=== PATIENT | female | born 1935 | race Caucasian/White ===

== ENCOUNTER → 2017-06-20 | Outpatient (CLI) | payer MEDICARE, BC ==
[~2017-06-20] MED LIST: CALCIUM & MAGNE1 CAP PO; CEFTIN250 MG PO; IMODIUM2 MG PO; MULTIPLE VITAMI1 CAP PO; NORCO 325 MG-51 TAB PO; VICOPROFEN 7.51 TAB PO; VITAMIN B COMPL1 TA1 PO; VITAMIN C500 MG PO
== END ==
LOC: COL.VAS 07:56
DX: C18.9 Malignant neoplasm of colon, unspecified (principal); Z86.711 Personal history of pulmonary embolism

== ENCOUNTER 2017-12-06 10:53 | Emergency (ER) | payer MEDICARE, BC ==
[~2017-12-06] VITALS: Ht 170.2 cm; Wt 54.5 kg
[2017-12-06 10:57] VITALS: TEMP 98
[2017-12-06 11:33] LABS: BASO % 0.5 % (0.0-2.0); EOS % 0.5 % (0-4.0); GRAN % 78.8 % (42.2-75.2); HEMATOCRIT 41.4 % (37.0-47.0); LYMPH # 0.7 (1.2-3.4); LYMPH % 10.6 % (20.0-51.0); MEAN CELL VOLUME 96 fl (80.0-100.0); MEAN CORPUSCULAR HEMOGLOBIN 33 pg (27.0-31.0); MEAN CORPUSCULAR HGB CONC 34 g/dl (33.0-37.0); MEAN PLATELET VOLUME 12.3 fl (7.4-10.4); MONO # 0.6 (0.1-0.6); MONO % 9.4 % (1.7-9.3); PLATELET COUNT 142 K/mm3 (130-400); RED BLOOD COUNT 4.31 M/mm3 (4.10-5.30); REDCELL DISTRIBUTION WIDTH-CV 12.9 % (11.5-14.5)
[2017-12-06 11:43] LABS: ALBUMIN 4.6 gm/dL (3.5-5.0); BILIRUBIN,TOTAL 1.3 mg/dL (0.0-1.0); C-REACTIVE PROTEIN 6.6 mg/dL (0.0-0.9); CALCIUM 9.4 mg/dL (8.4-10.2); CREATININE, serum 0.7 mg/dL (0.52-1.25); POTASSIUM 3.9 mmol/L (3.4-5.0); TOTAL PROTEIN 7.4 gm/dL (6.4-8.2)
[2017-12-06] MEDS ORDERED: LEVAQUIN 5500 MG/TA1 PO (13:22)
[2017-12-06] MEDS ORDERED: FLAGYL500 MG PO (13:22)
[2017-12-06 13:40] VITALS: BP 114/69; PULSE 76
== END 2017-12-06 13:33 | disposition home or self-care (01) ==
LOC: COL.ER 10:53
PROVIDERS: Emergency Medicine
DX: K52.9 Noninfective gastroenteritis and colitis, unspecified (principal); K62.89 Other specified diseases of anus and rectum; Z90.710 Acquired absence of both cervix and uterus; Z90.89 Acquired absence of other organs; Z98.890 Other specified postprocedural states
CPT/HCPCS: J7030; Q9967

== ENCOUNTER 2018-04-12 10:48 | Inpatient (IN) | payer MEDICARE, BC ==
[~2018-04-12] VITALS: Ht 170.2 cm; Wt 56.0 kg
[2018-04-12] VITALS (8 sets, daily range): BP systolic 102–121; BP diastolic 43–82; PULSE 76–85; TEMP 98.1–98.4
[~2018-04-12 10:48] MED LIST changes: +FLAGYL500 MG PO; +LEVAQUIN 5500 MG/TA1 PO
[2018-04-12 12:12] LABS: HEMATOCRIT 41.3 % (37.0-47.0); MEAN CELL VOLUME 97 fl (80.0-100.0); MEAN CORPUSCULAR HEMOGLOBIN 33 pg (27.0-31.0); MEAN CORPUSCULAR HGB CONC 34 g/dl (33.0-37.0); MEAN PLATELET VOLUME 11.8 fl (7.4-10.4); PLATELET COUNT 151 K/mm3 (130-400); RED BLOOD COUNT 4.27 M/mm3 (4.10-5.30)
[2018-04-12 12:16] LABS: PROTHROMBIN TIME 11.5 SECONDS (9.7-12.8)
[2018-04-12 12:24] LABS: ALBUMIN 4.2 gm/dL (3.5-5.0); BILIRUBIN,TOTAL 0.6 mg/dL (0.0-1.0); CALCIUM 9.3 mg/dL (8.4-10.2); CREATININE, serum 0.63 mg/dL (0.52-1.25); POTASSIUM 4.6 mmol/L (3.4-5.0); TOTAL PROTEIN 7.5 gm/dL (6.4-8.2)
[2018-04-12 12:59] LABS: BAND 11 % (0-10); LYMPHOCYTE 10 % (20.0-51.0); NEUTROPHILS 75 % (42.0-75.2)
[2018-04-12 13:00] LABS: PLATELET ESTIMATE NORMAL (NORMAL)
[2018-04-12 15:05] LABS: COLLECTION METHOD CLEAN CATCH
[2018-04-12 15:29] LABS: MUCOUS Present /lpf; PH 6 (5-8); SQUAMOUS EPITHELIAL 0-2 /hpf; URINE APPEARANCE Clear; URINE BACTERIA None Seen /hpf; URINE BILIRUBIN Negative (NEGATIVE); URINE BLOOD Negative (NEGATIVE); URINE COLOR Yellow; URINE GLUCOSE Negative (NEGATIVE); URINE KETONE Trace (NEGATIVE); URINE LEUKOCYTE ESTERASE Negative (NEGATIVE); URINE NITRATE Negative (NEGATIVE); URINE PROTEIN(semi-quant) Negative (NEGATIVE); URINE RBC 0-2 /hpf; URINE UROBILINOGEN Negative (NEGATIVE)
[2018-04-13] VITALS (7 sets, daily range): BP systolic 94–149; BP diastolic 43–80; PULSE 70–84; TEMP 98.2–99.1
[2018-04-13 06:47] LABS: BASO % 0.1 % (0.0-2.0); GRAN # 5.9 (1.4-6.5); GRAN % 85.7 % (42.2-75.2); LYMPH # 0.5 (1.2-3.4); LYMPH % 7.3 % (20.0-51.0); MEAN CELL VOLUME 97 fl (80.0-100.0); MEAN CORPUSCULAR HGB CONC 33 g/dl (33.0-37.0); MEAN PLATELET VOLUME 12.8 fl (7.4-10.4); MONO # 0.5 (0.1-0.6); MONO % 6.6 % (1.7-9.3); PLATELET COUNT 112 K/mm3 (130-400); RED BLOOD COUNT 3.41 M/mm3 (4.10-5.30)
[2018-04-13 06:53] LABS: CALCIUM 8.3 mg/dL (8.4-10.2); CREATININE, serum 0.61 mg/dL (0.52-1.25); POTASSIUM 3.9 mmol/L (3.4-5.0)
[2018-04-13 06:57] LABS: HEMATOCRIT 33.1 % (37.0-47.0); MEAN CORPUSCULAR HEMOGLOBIN 32 pg (27.0-31.0)
[2018-04-14 03:34] VITALS: BP 127/56; PULSE 89; TEMP 98.5
[2018-04-14 07:37] VITALS: BP 116/54; PULSE 81; TEMP 98.2
[2018-04-14 08:52] LABS: BASO % 0.3 % (0.0-2.0); EOS # 0.1 (0.0-0.7); EOS % 1.7 % (0-4.0); GRAN # 4.7 (1.4-6.5); GRAN % 81.5 % (42.2-75.2); HEMOGLOBIN 11.1 g/dl (12.5-16.0); LYMPH # 0.6 (1.2-3.4); LYMPH % 10.7 % (20.0-51.0); MEAN CELL VOLUME 97 fl (80.0-100.0); MEAN CORPUSCULAR HEMOGLOBIN 32 pg (27.0-31.0); MEAN CORPUSCULAR HGB CONC 33 g/dl (33.0-37.0); MEAN PLATELET VOLUME 12.2 fl (7.4-10.4); MONO # 0.3 (0.1-0.6); MONO % 5.5 % (1.7-9.3); PLATELET COUNT 103 K/mm3 (130-400); RED BLOOD COUNT 3.44 M/mm3 (4.10-5.30)
[2018-04-14 08:53] LABS: HEMATOCRIT 33.4 % (37.0-47.0)
[2018-04-14] MEDS ORDERED: ASPI325T6 PO (11:02)
[2018-04-14] MEDS ORDERED: ULTRAM 50MG TAB50 MG PO (11:06)
[2018-04-14 11:59] VITALS: BP 103/46; PULSE 70; TEMP 98.5
[2018-04-14 16:02] VITALS: BP 115/54; PULSE 78; TEMP 98.5
[2018-04-14 20:07] VITALS: BP 106/53; PULSE 87; TEMP 99
== END 2018-04-14 20:43 | disposition home health service (06) | DRG 481 ==
LOC: COL.ER 10:48 → JCC 12:45
PROVIDERS: Hospitalist; Nurse Practitioner; Orthopaedic Surgery; Physician Assistant
PROC: 0QH706Z Insertion of Intramedullary Internal Fixation Device into Left Upper Femur, Open Approach (ICD-10-PCS; principal; 2018-04-12 16:00)
DX: S72.142A Displaced intertrochanteric fracture of left femur, initial encounter for closed fracture (principal); C18.7 Malignant neoplasm of sigmoid colon; C77.2 Secondary and unspecified malignant neoplasm of intra-abdominal lymph nodes; D62 Acute posthemorrhagic anemia; Z66 Do not resuscitate; W18.30XA Fall on same level, unspecified, initial encounter; F17.210 Nicotine dependence, cigarettes, uncomplicated
CPT/HCPCS: 99222-AI; 99233-AI; 99239; A4314; A9284; C1713; J0690; J1885; J2250; J2270; J2370; J2405; J2704; J2795; J3010; J7030; J7050

== ENCOUNTER 2018-09-14 21:59 | Observation (INO) | payer MEDICARE, BC ==
[~2018-09-14] VITALS: Ht 172.7 cm; Wt 57.6 kg
[~2018-09-14 21:59] MED LIST changes: +ASPI325T6 PO; +ULTRAM 50MG TAB50 MG PO
[2018-09-14 22:39] LABS: BASO % 0.2 % (0.0-2.0); EOS # 0.1 (0.0-0.7); EOS % 0.5 % (0-4.0); GRAN % 87.5 % (42.2-75.2); HEMATOCRIT 44.5 % (37.0-47.0); HEMOGLOBIN 15.1 g/dl (12.5-16.0); LYMPH # 0.6 (1.2-3.4); LYMPH % 6.5 % (20.0-51.0); MEAN CELL VOLUME 96 fl (80.0-100.0); MEAN CORPUSCULAR HEMOGLOBIN 32 pg (27.0-31.0); MEAN CORPUSCULAR HGB CONC 34 g/dl (33.0-37.0); MEAN PLATELET VOLUME 11.5 fl (7.4-10.4); MONO # 0.5 (0.1-0.6); PLATELET COUNT 175 K/mm3 (130-400); RED BLOOD COUNT 4.66 M/mm3 (4.10-5.30); REDCELL DISTRIBUTION WIDTH-CV 13.7 % (11.5-14.5)
[2018-09-14 22:45] LABS: COLLECTION METHOD CLEAN CATCH
[2018-09-14 22:50] LABS: ALANINE AMINOTRANSFERASE 35 U/L (9-52); ALBUMIN 4.4 gm/dL (3.5-5.0); ALKALINE PHOSPHATASE 72 U/L (50-136); ANION GAP 6 mmol/L (7-16); AST,SGOT 42 U/L (15-37); BILIRUBIN,TOTAL 0.8 mg/dL (0.0-1.0); BLOOD UREA NITROGEN 14 mg/dL (7-17); C-REACTIVE PROTEIN 0.6 mg/dL (0.0-0.9); CALCIUM 9.6 mg/dL (8.4-10.2); CARBON DIOXIDE 36 mmol/L (22-30); CHLORIDE 100 mmol/L (98-107); CREATININE, serum 0.65 mg/dL (0.52-1.25); GLUCOSE 116 mg/dL (74-106); LIPASE 179 U/L (23-300); POTASSIUM 3.7 mmol/L (3.4-5.0); SODIUM 141 mmol/L (137-145); TOTAL PROTEIN 7.4 gm/dL (6.4-8.2)
[2018-09-14 22:55] LABS: HYALINE CAST >12 /lpf; MUCOUS Present /lpf; PH 5 (5-8); SQUAMOUS EPITHELIAL 0-2 /hpf; URINE APPEARANCE Hazy; URINE BACTERIA None Seen /hpf; URINE BILIRUBIN Negative (NEGATIVE); URINE BLOOD Negative (NEGATIVE); URINE CALCIUM OXALATE CRYSTAL Present /hpf; URINE COLOR Amber; URINE GLUCOSE Negative (NEGATIVE); URINE KETONE Trace (NEGATIVE); URINE LEUKOCYTE ESTERASE Trace (NEGATIVE); URINE NITRATE Negative (NEGATIVE); URINE PROTEIN(semi-quant) 1+ (NEGATIVE); URINE UROBILINOGEN Negative (NEGATIVE)
[2018-09-14 23:01] LABS: TROPONIN-I < 0.012 ng/mL (0.000-0.034)
[2018-09-15 02:27] VITALS: BP 114/45; PULSE 84; TEMP 98.1
[2018-09-15 07:26] VITALS: BP 85/44; PULSE 72; TEMP 98.9
[2018-09-15 08:50] VITALS: BP 101/43; PULSE 75
[2018-09-15 11:23] VITALS: BP 91/41; PULSE 73; TEMP 98.6
== END 2018-09-15 15:45 | disposition home or self-care (01) ==
LOC: COL.ER 21:59 → SURG 09-15 01:03
PROVIDERS: Emergency Medicine
DX: R10.9 Unspecified abdominal pain (principal); F17.210 Nicotine dependence, cigarettes, uncomplicated; Z85.038 Personal history of other malignant neoplasm of large intestine; Z90.49 Acquired absence of other specified parts of digestive tract
CPT/HCPCS: G0378; J2405; J3010; J7030; Q9967

== ENCOUNTER 2019-07-27 16:53 | Observation (INO) | payer MEDICARE, BC ==
[~2019-07-27] VITALS: Ht 170.2 cm; Wt 55.7 kg
[2019-07-27 18:05] LABS: HEMATOCRIT 47.4 % (37.0-47.0); HEMOGLOBIN 15.9 g/dl (12.5-16.0); MEAN CELL VOLUME 96 fl (80.0-100.0); MEAN CORPUSCULAR HEMOGLOBIN 32 pg (27.0-31.0); MEAN CORPUSCULAR HGB CONC 34 g/dl (33.0-37.0); MEAN PLATELET VOLUME 11.8 fl (7.4-10.4); PLATELET COUNT 176 K/mm3 (130-400); RED BLOOD COUNT 4.94 M/mm3 (4.10-5.30); REDCELL DISTRIBUTION WIDTH-CV 12.8 % (11.5-14.5)
[2019-07-27 18:19] LABS: ALBUMIN 4.6 gm/dL (3.5-5.0); BILIRUBIN,TOTAL 0.7 mg/dL (0.0-1.0); CALCIUM 9.5 mg/dL (8.4-10.2); CREATININE, serum 0.6 (0.52-1.25); POTASSIUM 4.2 mmol/L (3.4-5.0); TOTAL PROTEIN 7.6 gm/dL (6.4-8.2)
[2019-07-27 18:51] LABS: BAND 9 % (0-10); LYMPHOCYTE 8 % (20.0-51.0); NEUTROPHILS 81 % (42.0-75.2); PLATELET ESTIMATE NORMAL (NORMAL)
[2019-07-27 20:10] VITALS: BP 107/67; PULSE 78; TEMP 97.9
[2019-07-27 20:37] LABS: COLLECTION METHOD CLEAN CATCH
[2019-07-27 20:42] VITALS: BP 107/67; PULSE 78; TEMP 97.9
[2019-07-27 20:52] LABS: MUCOUS Present /lpf; PH 7 (5-8); SQUAMOUS EPITHELIAL 0-2 /hpf; URINE APPEARANCE Clear; URINE BACTERIA None Seen /hpf; URINE BILIRUBIN Negative (NEGATIVE); URINE BLOOD Negative (NEGATIVE); URINE COLOR Yellow; URINE GLUCOSE Negative (NEGATIVE); URINE KETONE 1+ (NEGATIVE); URINE LEUKOCYTE ESTERASE Negative (NEGATIVE); URINE NITRATE Negative (NEGATIVE); URINE PROTEIN(semi-quant) Negative (NEGATIVE); URINE RBC 0-2 /hpf; URINE UROBILINOGEN Negative (NEGATIVE)
[2019-07-28 00:19] VITALS: BP 109/48; PULSE 69; TEMP 98.4
--- NOTE | 2019-07-28 01:15 | NUR ---
Patient to the floor at 2030. IVF running to right forearm. Complains of abdominal pain. PRN Morphine given. Effective. Patient stated aroudn 0100 that she would like an NG tube because she feels like she is going to vomit and she feels very full and uncomfortable. Dr. Chao notified and ordered NG tube placement on LIS. NG tube placed to right nare with no difficulty. 30ml air flushed into NG and it was heard in epigastric region. Light green fluid returned. Patient stated she started feeling better. Will continue to monitor.
[2019-07-28 03:52] VITALS: BP 108/52; PULSE 87; TEMP 99.2
--- NOTE | 2019-07-28 04:03 | NUR ---
Patient called this nurse into her room and stated she wanted the NG tube taken out because it was causing pain to the right neck, jaw, and sinuses. Education provided to patient about reasons for keeping the NG tube in and patient continued to ask to take it out. NG tube removed. 100ml light green fluid in cannister. Will continue to monitor patient.
[2019-07-28 06:26] LABS: BASO % 0.4 % (0.0-2.0); EOS # 0.1 (0.0-0.7); EOS % 1.5 % (0-4.0); GRAN # 4.3 (1.4-6.5); GRAN % 81.2 % (42.2-75.2); HEMATOCRIT 43.1 % (37.0-47.0); HEMOGLOBIN 14.1 g/dl (12.5-16.0); LYMPH # 0.5 (1.2-3.4); LYMPH % 9.2 % (20.0-51.0); MEAN CELL VOLUME 97 fl (80.0-100.0); MEAN CORPUSCULAR HEMOGLOBIN 32 pg (27.0-31.0); MEAN CORPUSCULAR HGB CONC 33 g/dl (33.0-37.0); MEAN PLATELET VOLUME 12.5 fl (7.4-10.4); MONO # 0.4 (0.1-0.6); MONO % 7.5 % (1.7-9.3); PLATELET COUNT 141 K/mm3 (130-400); RED BLOOD COUNT 4.46 M/mm3 (4.10-5.30); REDCELL DISTRIBUTION WIDTH-CV 12.8 % (11.5-14.5)
[2019-07-28 06:29] LABS: CALCIUM 8.5 mg/dL (8.4-10.2); CREATININE, serum 0.57 (0.52-1.25); POTASSIUM 4.1 mmol/L (3.4-5.0)
--- NOTE | 2019-07-28 08:00 | NUR ---
Patient in bed resting. Alert and oriented x 3. Shift assessment complete. Patient States she is feeling much better today. Denies pain at this time. Denies further needs at this time.
[2019-07-28 09:12] VITALS: BP 104/44; PULSE 85; TEMP 98.5
--- NOTE | 2019-07-28 10:00 | NUR ---
Patient tolerating small amounts of clear liquids without difficulty.
[2019-07-28 12:24] VITALS: BP 99/44; PULSE 65; TEMP 98.3
[2019-07-28 15:27] VITALS: BP 113/45; PULSE 79; TEMP 98.6
--- NOTE | 2019-07-28 15:56 | NUR ---
Plan is to return home alone. Patient reports that her PCP is Dr. Baker. Patient uses a DME walker denies any other. [facility] is the preffered Pharm [facility]. DPOA is TALYA Bryant in [place]. Emergency contact is Karla Kilpatrick local or Atilio Davies . Patient indicated that her friend with transport home. SW did not identify any additional information. Educated about Community resources and [facility] services. No additional concerns identified.
--- NOTE | 2019-07-28 18:18 | NUR ---
Discharge instructions provided to patient. Patient is to follow up with Dr. Chao as needed. Had a medium sized BM prior to discharge. Patient out by wheelchair with neighbor. All questions answered.
== END 2019-07-28 16:20 | disposition home or self-care (01) ==
LOC: COL.ER 16:53 → SURG 18:59
PROVIDERS: Emergency Medicine; ADMIT Surgery
DX: K56.609 Unspecified intestinal obstruction, unspecified as to partial versus complete obstruction (principal); F17.210 Nicotine dependence, cigarettes, uncomplicated; Z85.038 Personal history of other malignant neoplasm of large intestine; Z93.3 Colostomy status; Z93.2 Ileostomy status
CPT/HCPCS: G0378; J2270; J2405; J3010; J7030; Q9967

== ENCOUNTER → 2020-01-16 | Outpatient (CLI) | payer MEDICARE, BC | LOC: ZCOL.LAB 15:49 | DX: M70.22 Olecranon bursitis, left elbow (principal) ==

== ENCOUNTER → 2020-04-24 | Outpatient (CLI) | payer MEDICARE, BC | LOC: ZCOL.LAB 14:46 | DX: Z86.19 Personal history of other infectious and parasitic diseases (principal) ==

== ENCOUNTER → 2020-07-30 | Outpatient (CLI) | payer MEDICARE, BC | LOC: ZCOL.LAB 16:07 | DX: S81.801A Unspecified open wound, right lower leg, initial encounter (principal) ==

== ENCOUNTER 2020-12-15 16:42 | Inpatient (IN) | payer MEDICARE, BC ==
[~2020-12-15] VITALS: Ht 170.2 cm; Wt 54.5 kg
[2020-12-15 18:15] LABS: BASO % 0.3 % (0.0-2.0); EOS # 0.1 (0.0-0.7); EOS % 0.8 % (0-4.0); GRAN % 87.3 % (42.2-75.2); HEMATOCRIT 46.6 % (37.0-47.0); HEMOGLOBIN 15.4 g/dl (12.5-16.0); LYMPH # 0.6 (1.2-3.4); LYMPH % 6.5 % (20.0-51.0); MEAN CELL VOLUME 97 fl (80.0-100.0); MEAN CORPUSCULAR HEMOGLOBIN 32 pg (27.0-31.0); MEAN CORPUSCULAR HGB CONC 33 g/dl (33.0-37.0); MEAN PLATELET VOLUME 11.2 fl (7.4-10.4); MONO # 0.4 (0.1-0.6); MONO % 4.8 % (1.7-9.3); PLATELET COUNT 178 K/mm3 (130-400); RED BLOOD COUNT 4.81 M/mm3 (4.10-5.30); REDCELL DISTRIBUTION WIDTH-CV 12.6 % (11.5-14.5)
[2020-12-15 18:28] LABS: ALBUMIN 4.4 gm/dL (3.5-5.0); BILIRUBIN,TOTAL 0.9 mg/dL (0.0-1.0); C-REACTIVE PROTEIN 0.9 mg/dL (0.0-0.9); CALCIUM 9.5 mg/dL (8.4-10.2); CREATININE, serum 0.63 (0.52-1.25); TOTAL PROTEIN 7.4 gm/dL (6.4-8.2)
[2020-12-15 18:45] LABS: COLLECTION METHOD CLEAN CATCH
[2020-12-15 18:59] LABS: BUDDING YEAST Present /hpf; MUCOUS Present /lpf; PH 7 (5-8); SQUAMOUS EPITHELIAL 0-2 /hpf; URINE APPEARANCE Cloudy; URINE BACTERIA None Seen /hpf; URINE BILIRUBIN Negative (NEGATIVE); URINE BLOOD Negative (NEGATIVE); URINE COLOR Amber; URINE GLUCOSE Negative (NEGATIVE); URINE KETONE Trace (NEGATIVE); URINE LEUKOCYTE ESTERASE Trace (NEGATIVE); URINE NITRATE Negative (NEGATIVE); URINE PROTEIN(semi-quant) 1+ (NEGATIVE); URINE UROBILINOGEN Negative (NEGATIVE)
--- NOTE | 2020-12-15 22:10 | NUR ---
PT ARRIVES TO FLOOR VIA W/C FROM ED. IS ALERT AND ORIENTED X4. HAS NGT TO LIS WITH NO DRAINAGE IN CANNISTER. RATES PAIN 7/10 TO BACK AND ASKING FOR PAIN MEDS.
--- NOTE | 2020-12-15 22:20 | NUR ---
DR MONTERROSO NOTIFIED OF PATIENTS ARRIVAL AND NEED FOR ORDERS.
--- NOTE | 2020-12-15 23:00 | NUR ---
MEDICATED WITH DILAUDID 0.5MG IVP FOR BACK AND ABD PAIN. IS ALERT AND ORIENTED X4. IVF INFUSING TO LEFT FOREARM WITHOUT PROBLEM. NGT TO RIGHT NARE TO LIS.
[2020-12-16 00:22] VITALS: BP 116/48; PULSE 67; TEMP 97.4
[2020-12-16 03:49] VITALS: BP 120/51; PULSE 72; TEMP 97
--- NOTE | 2020-12-16 06:00 | NUR ---
MINIMAL LIGHT BROWN DRAINAGE IN CANNISTER AND TUBING.
--- NOTE | 2020-12-16 06:15 | NUR ---
MEDICATED WITH DILAUDID 0.5MG IVP FOR PAIN TO ABD/BACK.
[2020-12-16 07:29] VITALS: BP 109/89; PULSE 72; TEMP 98.7
--- NOTE | 2020-12-16 09:01 | NUR ---
Dr Lugo here to see patient.
[2020-12-16 10:03] LABS: BASO % 0.4 % (0.0-2.0); EOS # 0.1 (0.0-0.7); EOS % 1.8 % (0-4.0); GRAN # 4.3 (1.4-6.5); GRAN % 76.1 % (42.2-75.2); HEMATOCRIT 40.6 % (37.0-47.0); HEMOGLOBIN 13.6 g/dl (12.5-16.0); LYMPH # 0.8 (1.2-3.4); LYMPH % 13.2 % (20.0-51.0); MEAN CELL VOLUME 96 fl (80.0-100.0); MEAN CORPUSCULAR HEMOGLOBIN 32 pg (27.0-31.0); MEAN CORPUSCULAR HGB CONC 34 g/dl (33.0-37.0); MEAN PLATELET VOLUME 12.1 fl (7.4-10.4); MONO # 0.5 (0.1-0.6); MONO % 8.3 % (1.7-9.3); PLATELET COUNT 139 K/mm3 (130-400); RED BLOOD COUNT 4.23 M/mm3 (4.10-5.30); REDCELL DISTRIBUTION WIDTH-CV 12.5 % (11.5-14.5)
[2020-12-16 10:18] LABS: ALBUMIN 3.5 gm/dL (3.5-5.0); BILIRUBIN,TOTAL 0.9 mg/dL (0.0-1.0); C-REACTIVE PROTEIN 2.8 mg/dL (0.0-0.9); CALCIUM 8.6 mg/dL (8.4-10.2); CREATININE, serum 0.64 (0.52-1.25); POTASSIUM 4.2 mmol/L (3.4-5.0)
--- NOTE | 2020-12-16 10:59 | NUR ---
SURI met with the patient to discuss discharge plan. The patient lives alone in [place]. She states that her lixgeh-fl-teu, Chitra, lives nearby. She reports independence with ADLs and has a cane, walker, and wheelchair available if needed. The patient's PCP is Dr. Lorri Barrera and she receives her medications from [facility]. She reports no difficulties obtaining her meds. The patient does not have a DPOA-HC in EMR, but she states that she does have one completed and that it designates her daughter, Sumi Martini (ph#[phone]), and son-in-law, Sunil. She states that her divorce attorney, Keerthi Henry, should have a copy of the document. The patient plans to return home upon discharge. She states that she has great friends and neighbor support that will transport her home upon discharge. She states that she has not told her daughter yet that she is here. SURI contacted Tor at Keerthi Henry's law office. Tor reports that Keerthi is retired and does not come in much now. He states that he will need to check with him to see if he has the document and will contact SURI back. SURI to follow as needed.
[2020-12-16 11:15] VITALS: BP 125/88; PULSE 120; TEMP 98.8
--- NOTE | 2020-12-16 11:15 | NUR ---
Patient alert and oriented, answers questions appropriately. See assessment. Abdomen soft, non tender, non distended. Bowel sounds active x4 quads. +Flatus. No bowel movement. NGT in place to right nare, clamped at 1015, CLD initiated. No c/o at this time.
--- NOTE | 2020-12-16 12:16 | NUR ---
First visit from the parts sales counterperson. No needs right now.
--- NOTE | 2020-12-16 14:02 | NUR ---
An RT oximetry was ordered. The patient qualified for 3 liters of oxygen. SURI placed the oxygen script on the patient's chart for the patient's attending to sign. SURI notified the patient's RN of this. SURI then met with the patient to inform her of how she qualified and informed her of the different DME companies. The patient states that she does not want home oxygen and asked what would happen if she did not get the oxygen. SURI informed the patient that her attending would inform her of the risks. SURI updated the patient's RN.
[2020-12-16 16:01] VITALS: BP 103/77; PULSE 95; TEMP 99.3
[2020-12-16 20:22] VITALS: BP 117/42; PULSE 81; TEMP 98.3
--- NOTE | 2020-12-16 21:40 | NUR ---
Pt. sitting up in bed. Pt. is A&OX3, assessment complete. INT to lt. forearm patent. Pt. reported back pain, pt. did not want IV dilaudid. Dr. Chao notified. NEw orders received. Pt. denies further needs.
--- NOTE | 2020-12-18 08:57 | NUR ---
*Late entry-12/17/20* The patient is ready to d/c today. SURI and the patient's RN, Jackie, met with the patient to discuss the need for home oxygen and the importance of using it. The patient states that she has never needed oxygen before and has never been diagnosed with anything to suggest she would need it. The patient's RN notified her PCP's office and oncologist. SURI and the patient's RN also discussed home health services and it's benefits. The patient was agreeable to get home oxygen and home health services. SURI informed her of the different home health agencies and [employer] companies. The patient was interested in [facility] and agreeable to [facility] for the oxygen. SURI contacted and faxed a referral to Tamara at [facility]. Tamara reports that they are able to accept the patient for services and will go about tomorrow to see her. SURI contacted and faxed the oxygen order to Rigoberto at [facility]. Rigoberto reports that the patient does not have a qualifying diagnosis for Medicare to cover the oxygen and the patient would have to private pay around $170-$200 a month. SUIR informed the patient. The patient was agreeable to private pay. SURI notified Rigoberto at [facility]. Rigoberto delivered the oxygen to the patient's room. The patient is to discharge back home today, 12/17, with home health services for mcfp/PT/OT through [facility] and home oxygen from [facility]. No additional needs at this time.
[2020-12-18 15:33] LABS: POTASSIUM 3.9 mmol/L (3.4-5.0)
[2020-12-18 15:34] LABS: ALBUMIN 3.3 gm/dL (3.5-5.0); BILIRUBIN,TOTAL 0.8 mg/dL (0.0-1.0); CALCIUM 8.1 mg/dL (8.4-10.2); CREATININE, serum 0.58 (0.52-1.25); TOTAL PROTEIN 5.8 gm/dL (6.4-8.2)
[2020-12-19 00:11] LABS: BASO % 0.4 % (0.0-2.0); EOS # 0.1 (0.0-0.7); EOS % 2.2 % (0-4.0); GRAN # 3.5 (1.4-6.5); GRAN % 17.2 % (42.2-75.2); HEMATOCRIT 38.6 % (37.0-47.0); HEMOGLOBIN 12.8 g/dl (12.5-16.0); LYMPH # 0.9 (1.2-3.4); LYMPH % 17.5 % (20.0-51.0); MEAN CELL VOLUME 99 fl (80.0-100.0); MEAN CORPUSCULAR HEMOGLOBIN 33 pg (27.0-31.0); MEAN CORPUSCULAR HGB CONC 33 g/dl (33.0-37.0); MEAN PLATELET VOLUME 11.7 fl (7.4-10.4); MONO # 0.4 (0.1-0.6); MONO % 8.5 % (1.7-9.3); PLATELET COUNT 127 K/mm3 (130-400); RED BLOOD COUNT 3.89 M/mm3 (4.10-5.30); REDCELL DISTRIBUTION WIDTH-CV 12.6 % (11.5-14.5)
== END 2020-12-17 16:35 | disposition home health service (06) | DRG 390 ==
LOC: COL.ER 16:42 → SURG 19:49 → MEDICAL 12-16 09:55 → SURG 12-16 09:55
PROVIDERS: Family Medicine; ADMIT Surgery
DX: K56.600 Partial intestinal obstruction, unspecified as to cause (principal); F17.200 Nicotine dependence, unspecified, uncomplicated; Z88.6 Allergy status to analgesic agent; Z85.038 Personal history of other malignant neoplasm of large intestine; Z90.710 Acquired absence of both cervix and uterus; Z90.49 Acquired absence of other specified parts of digestive tract
CPT/HCPCS: A9284; J1170; J2405; J3010; J7120; Q9967

== ENCOUNTER 2023-01-19 15:49 | Observation (INO) | payer MEDICARE, BC ==
[~2023-01-19] VITALS: Ht 170.2 cm; Wt 54.9 kg
[~2023-01-19 15:49] MED LIST changes: +ALIVE PRENATAL1 EACH PO; +MELATIN 3 MG-11 TAB PO
[2023-01-19 16:40] LABS: HEMOGLOBIN 15.9 g/dl (12.5-16.0); MEAN CELL VOLUME 95 fl (80.0-100.0); MEAN CORPUSCULAR HEMOGLOBIN 33 pg (27-31); MEAN CORPUSCULAR HGB CONC 35 g/dl (33.0-37.0); MEAN PLATELET VOLUME 11.1 fl (7.4-10.4); PLATELET COUNT 199 K/mm3 (130-400); RED BLOOD COUNT 4.87 M/mm3 (4.10-5.30); REDCELL DISTRIBUTION WIDTH-CV 12.9 % (11.5-14.5)
[2023-01-19 16:58] LABS: ALBUMIN 4.3 gm/dL (3.4-4.8); BILIRUBIN,TOTAL 0.9 mg/dL (0.2-1.2); C-REACTIVE PROTEIN 0.12 mg/dL (0.00-0.50); CALCIUM 9.5 mg/dL (8.4-10.2); CREATININE, serum 0.7 mg/dL (0.57-1.11); MAGNESIUM 1.7 mg/dL (1.6-2.6); POTASSIUM 4.2 mmol/L (3.5-4.5); TOTAL PROTEIN 7.2 gm/dL (6.2-8.1)
[2023-01-19 17:22] LABS: BAND 17 % (0-10); LYMPHOCYTE 6 % (20.0-51.0); NEUTROPHILS 72 % (42.0-75.2)
[2023-01-19 17:24] LABS: PLATELET ESTIMATE NORMAL (NORMAL)
[2023-01-19 19:54] VITALS: BP 144/78; PULSE 90; TEMP 99.1
--- NOTE | 2023-01-19 22:53 | NUR ---
PATIENT HAD X1 EPISODE OF EMESIS, PRN ZOFRAN GIVEN. DISCUSSED WITH DR GLASS AND ORDER TO START NG TUBE IF VOMITING PERSISTS. PATIENT HESITATANT ABOUT NEED FOR NG TUBE AND WANTS TO JUST TRY ZOFRAN AT THIS TIME. PRN MORPHINE GIVEN FOR LLQ ABD PAIN. DENIES ADDITIONAL NEEDS. CALL LIGHT IN REACH.
[2023-01-19 23:31] VITALS: BP 111/50; PULSE 69; TEMP 97.6
[2023-01-20 04:53] VITALS: BP 111/52; PULSE 77; TEMP 97.9
[2023-01-20 06:59] LABS: HEMATOCRIT 40.8 % (37.0-47.0); MEAN CELL VOLUME 94 fl (80.0-100.0); MEAN CORPUSCULAR HEMOGLOBIN 32 pg (27-31); MEAN CORPUSCULAR HGB CONC 34 g/dl (33.0-37.0); PLATELET COUNT 175 K/mm3 (130-400); RED BLOOD COUNT 4.34 M/mm3 (4.10-5.30); REDCELL DISTRIBUTION WIDTH-CV 13.1 % (11.5-14.5)
[2023-01-20 07:01] LABS: HEMOGLOBIN 13.8 g/dl (12.5-16.0)
[2023-01-20 07:10] LABS: CALCIUM 8.7 mg/dL (8.4-10.2); CREATININE, serum 0.71 mg/dL (0.57-1.11); POTASSIUM 4.3 mmol/L (3.5-4.5)
--- NOTE | 2023-01-20 07:30 | NUR ---
Pt. sitting up in bed. Pt. is a&OX3, assessment complete. IV to lt. forearm patent. Pt. reports pain at a 6 on pain scale, gave pain meds per orders. Pt. denies further needs, call light within reach.
[2023-01-20 07:53] VITALS: BP 107/61; PULSE 80; TEMP 98.5
[2023-01-20 12:06] VITALS: BP 154/64; PULSE 71; TEMP 99
[2023-01-20 15:34] VITALS: BP 117/48; PULSE 73; TEMP 99.4
--- NOTE | 2023-01-20 16:50 | NUR ---
Apprentice Carpenter met with patient to discuss discharge planning. Patient lives alone here in [place] and sees Dr. Barrera for primary care. Patient also sees Dr. Moreira. Patient obtains medications from [facility] pharmacy with no difficulties. Patient has a cane at bedside and also advised she has a walker at home that she uses at night time when she gets up to the bathroom. Patient does not normally wear oxygen, but currently has it on. Patient reports independence with ADLS and plans to return home at time of discharge. Patient advised her daughter, Sumi (ph#[phone]) is her DPOA-HC. Patient advised Sumi lives in [place]. Discharge Plan: Home
[2023-01-20 20:01] VITALS: BP 102/84; PULSE 71; TEMP 99.3
--- NOTE | 2023-01-20 22:45 | NUR ---
SHIFT REPORT FROM SANTOSH MITCHELL. PATIENT IN BED ON ROOM ENTRY. ALERT AND ORIENTED. DENIES PAIN CONTROL NEEDS AT THIS TIME. ABD IS FIRM BUT SOFTER THAN YESTERDAY. HYPOACTIVE BOWEL SOUNDS NOTED. DENIES NAUSEA. NEIGHBOR VAIBHAV WAS UP VISITING WITH PATIENT AND PATIENT SEEMED IN GOOD SPIRITS. PATIENTS DAUGHTER ALSO CALLED TO CHECK ON HER THIS EVENING.
[2023-01-20 23:37] VITALS: BP 132/56; PULSE 71; TEMP 99.2
--- NOTE | 2023-01-21 00:44 | NUR ---
PATIENT HAD LOOSE GREEN/BROWN STOOL WITH SOME SOFT FORMED PIECES NOTED.
[2023-01-21 03:49] VITALS: BP 126/61; PULSE 70; TEMP 99
[2023-01-21 08:18] VITALS: BP 128/51; PULSE 65; TEMP 97.6
[2023-01-21 12:24] VITALS: BP 124/68; PULSE 65; TEMP 97.9
[2023-01-21 14:57] VITALS: BP 128/50; PULSE 84; TEMP 98.2
--- NOTE | 2023-01-21 16:35 | NUR ---
PATIENT FOUND AMBULATING IN ROOM WITH 02 OFF SO SHE "COULD GET HER BILL PAID". PATIENT 02 SAT IN UPPER 70'S ON RA AND LIPS APPEARED DUSKY. APPLIED 02 @ 3L PER NC WITH SATS NOW ABOVE 94% AFTER A FEW MINUTES. PATIENT EDUCATED ABOUT O2 NEEDS.
[2023-01-21 19:46] VITALS: BP 107/89; PULSE 103; TEMP 98.6
--- NOTE | 2023-01-21 20:35 | NUR ---
Patient assessed around 2014. Alert and oriented x 4, and able to make needs known. Denies having pain and discomfort. Stated that she was able to hold her food down without any nausea, and is ready to go home. Explained that at this time, we do not have discharge orders due to her oxygen needs. Patient stated that this has happened before where they would discharge her with oxygen, and it is too much of a fall risk to her, and she refused to use it. Hospitalist has been consulted for hypoxia. Continues on oxygen at 3 L/min via NC at this time. Denies having SOB and dyspnea, even with exertion. Did report small, loose stool, dark in color this evening. Patient voices no questions, needs, or concerns at this time. In bed with call light within reach. Continues on IV fluids per orders.
--- NOTE | 2023-01-21 22:34 | NUR ---
Patient complaining of not being able to sleep. Spoke to PEPPER Ruano. New order for PRN Melatonin received and given per orders.
[2023-01-21 23:16] VITALS: BP 114/57; PULSE 94; TEMP 98.5
[2023-01-22 03:26] VITALS: BP 114/60; PULSE 74; TEMP 98.5
--- NOTE | 2023-01-22 05:18 | NUR ---
Had denied pain and discomfort this shift. Continues on oxygen at 3 L/min via NC. Continues to deny any SOB or dyspnea. Voices no questions, needs, or concerns at this time. In bed with call light within reach. IV fluids continue per orders.
[2023-01-22 07:26] VITALS: BP 113/55; PULSE 78; TEMP 98.5
--- NOTE | 2023-01-22 08:49 | NUR ---
Patient awake, alert and oriented. No complaints of pain or nausea. Ate about 40% of breakfast but reports poor appetite. Had a BM this morning, loose and brown. Nasal cannula in place. States she was sent home with oxygen last time and did not like it because the tubing was a tripping hazard. States she is very ready to go home today. Assisted back to bed from bathroom, bed in lowest positiong with call light within reach.
[2023-01-22 09:44] LABS: HEMATOCRIT 39.9 % (37.0-47.0); HEMOGLOBIN 13.7 g/dl (12.5-16.0); MEAN CELL VOLUME 95 fl (80.0-100.0); MEAN CORPUSCULAR HEMOGLOBIN 33 pg (27-31); MEAN CORPUSCULAR HGB CONC 34 g/dl (33.0-37.0); MEAN PLATELET VOLUME 11.9 fl (7.4-10.4); PLATELET COUNT 134 K/mm3 (130-400); RED BLOOD COUNT 4.21 M/mm3 (4.10-5.30); REDCELL DISTRIBUTION WIDTH-CV 12.7 % (11.5-14.5)
[2023-01-22 10:09] LABS: CALCIUM 8.2 mg/dL (8.4-10.2); CREATININE, serum 0.57 mg/dL (0.57-1.11); POTASSIUM 3.5 mmol/L (3.5-4.5)
[2023-01-22 11:17] VITALS: BP 133/57; PULSE 78; TEMP 98.5
--- NOTE | 2023-01-22 13:03 | NUR ---
Patient discharged to home, picked up by friend. Educated on discharge instructions, medications, and supplemental oxygen. Emphasized the need to wear her oxygen and routinely check her oxygen saturation as she states she has a pulse oximeter at home already. Pt verbalized understanding. IV removed. Taken with her belongings and oxygen, assisted safely into car by nursing staff.
--- NOTE | 2023-01-22 13:24 | NUR ---
SW informed that patient would be discharging on this day and would need O2 upon dc. SW met with patient to discuss discharge. SW informed that 02 was ordered and patient stated she would be okay with 02 as long as the tubing was short and the concentrator was small. SW encouraged patient to discuss size to sales representative education courses. Patient agreed to O2 services of choice [facility]. Documenation was faxed to [facility] and agency called.
== END 2023-01-22 13:06 | disposition home or self-care (01) ==
LOC: COL.ER 15:49 → SURG 18:43
PROVIDERS: Emergency Medicine; Internal Medicine; ADMIT Surgery
DX: K56.609 Unspecified intestinal obstruction, unspecified as to partial versus complete obstruction (principal); K66.0 Peritoneal adhesions (postprocedural) (postinfection); J96.01 Acute respiratory failure with hypoxia; Z20.822 Contact with and (suspected) exposure to COVID-19; Z66 Do not resuscitate; F17.210 Nicotine dependence, cigarettes, uncomplicated; Z90.49 Acquired absence of other specified parts of digestive tract; Z85.038 Personal history of other malignant neoplasm of large intestine
CPT/HCPCS: A9284; G0378; J2270; J2405; J3010; J7040; J7120; Q9967

== ENCOUNTER 2023-12-15 11:13 | Observation (INO) | payer MEDICARE ==
[~2023-12-15] VITALS: Ht 170.2 cm; Wt 53.0 kg
[~2023-12-15 11:13] MED LIST changes: +ALIVE ONCE DAI1 EACH PO; +BAYER BACK & B1 EACH PO; +BENTYL 20MG20 MG/TAB PO; +CALCIUM 600600 MG PO; +CALCIUM PO; +IBU400 MG PO; +MOTRIN 400400 MG/TAB PO; +VITAMINC1000TA PO; +VITC PO; +ZOFRAN ODT4 MG PO
[2023-12-15] MEDS ORDERED: NS 500 ML IV ONE (12:15)
[2023-12-15 12:34] LABS: HEMOGLOBIN 15.3 g/dl (12.5-16.0); MEAN CELL VOLUME 94 fl (80.0-100.0); MEAN CORPUSCULAR HEMOGLOBIN 32 pg (27-31); MEAN CORPUSCULAR HGB CONC 34 g/dl (33.0-37.0); PLATELET COUNT 216 K/mm3 (130-400); RED BLOOD COUNT 4.78 M/mm3 (4.10-5.30); REDCELL DISTRIBUTION WIDTH-CV 12.7 % (11.5-14.5)
[2023-12-15 12:39] LABS: BILIRUBIN,TOTAL 0.8 mg/dL (0.2-1.2); C-REACTIVE PROTEIN 1.52 mg/dL (0.00-0.50); CALCIUM 10.3 mg/dL (8.4-10.2); CREATININE, serum 0.79 mg/dL (0.57-1.11); MAGNESIUM 1.7 mg/dL (1.6-2.6); POTASSIUM 4.4 mmol/L (3.5-4.5); TOTAL PROTEIN 7.2 gm/dL (6.2-8.1)
[2023-12-15 12:50] LABS: BAND 37 % (0-10); LYMPHOCYTE 4 % (20.0-51.0); NEUTROPHILS 55 % (42.0-75.2); PLATELET ESTIMATE NORMAL (NORMAL)
[2023-12-15] MEDS ORDERED: NS 100 ML IV SCH (13:06)
[2023-12-15] MEDS ORDERED: Iohexol 300 - 100 ML VIAL IV ONE (13:06)
[2023-12-15 14:36] LABS: COLLECTION METHOD CLEAN CATCH
[2023-12-15 14:50] LABS: PH 8.5 (5.0-8.5); URINE APPEARANCE CLEAR (CLEAR/HAZY); URINE BLOOD NEGATIVE (NEGATIVE); URINE COLOR YELLOW (YELLOW); URINE GLUCOSE NEGATIVE (NEGATIVE); URINE KETONE NEGATIVE (NEGATIVE); URINE NITRATE NEGATIVE (NEGATIVE); URINE PROTEIN(semi-quant) TRACE (NEGATIVE)
[2023-12-15] MEDS ORDERED: D5 1/2 NS 1,000 ML IV SCH (15:30)
[2023-12-15] MEDS ORDERED: MELATONIN5 M1 CHEW (16:02)
[2023-12-15 17:00] VITALS: BP_SYST 142
[2023-12-15] MEDS ORDERED: Capsaicin 0.025% Cream 60 GM TUBE TP PRN (17:00)
[2023-12-15] MEDS ORDERED: Albuterol/Ipratropium 3 MG-0.5 MG/3 ML Neb Soln IH PRN (17:15)
[2023-12-15] MEDS ORDERED: Melatonin 3 MG TAB PO PRN (17:15)
[2023-12-15 17:19] VITALS: BP 142/71; PULSE 115; TEMP 98.8
--- NOTE | 2023-12-15 17:28 | NUR ---
PT ARRIVED TO SURGICAL UNIT FROM ED AROUND 1700. PT ALERT AND ORIENTED, UNSTEADY, USING STAFF TO STEADY HERSELF. WALKER NOW AT BEDSIDE, PT IS A ONE PEROSN ASSIST WITH FWW. SMALL SCAB ABOVE HER COCCYX, I COVERED BY MEPILEX FOR PREVENTION. IV TO LFA PATENT, FLUIDS RUNNING. PT REPORTS SHE HAD A BREAST AUGMENTATION A LONG TIME AGO NOT SURE OF THE YEAR, BILAT BREAST VERY FIRM BUT SOFT. DOES ATTEMPT TO GET OUT OF BED WITHOUT ASSISTANCE FREQUENTLY, HAVING LARGE WATERY STOOLS X2. VSS, ASSESSED. DENIES FURTHER NEED. CALL LIGHT WITHIN REACH, BED ALARM SET.
[2023-12-15] MEDS ORDERED: Ondansetron 4 MG/2 ML VIAL IV PRN (17:30)
[2023-12-15 18:18] LABS: INR 1.2 (0.8-3.0); PROTHROMBIN TIME 13.3 SECONDS (9.7-12.8)
[2023-12-15] MEDS ORDERED: Nicotine 21 MG DAILY PATCH TD SCH (19:45)
[2023-12-15 19:49] VITALS: BP 127/65; PULSE 109; PULSE 115; TEMP 99
[2023-12-15] MEDS ORDERED: Ketorolac 15 MG/ML VIAL IV PRN (20:15)
[2023-12-15] MEDS ORDERED: Morphine 4 MG/ML VIAL IV PRN (20:15)
[2023-12-15 21:00] VITALS: BP_SYST 127
[2023-12-15 23:38] VITALS: BP 118/68; PULSE 110; TEMP 99.4
[2023-12-15 23:39] VITALS: PULSE 108
[2023-12-16] VITALS (7 sets, daily range): BP systolic 100–160; BP diastolic 55–73; PULSE 71–85; TEMP 98.3–98.6
--- NOTE | 2023-12-16 02:05 | NUR ---
NURSING SHIFT ASSESSMENT COMPLETED. THE PATIENT WAS ALERT AND ORIENTED. THE PATIENT DENIED PAIN OR DISCOMFORT. THE PATIENT DENIED NEEDS. THE PLAN OF CARE WAS DISCUSSED. THE PATIENT DENIED THE NEED FOR A NICODERM PATCH THE PATIENT IS AN EVERY DAY SMOKER. CALL LIGHT AND PERSONAL BELONGINGS WITHIN REACH. BED IN LOW POSITION, BED ALARM ON.
--- NOTE | 2023-12-16 02:15 | NUR ---
23:20 THE AIDE WHILE TAKING VITAL SIGNS NOTED AN OXYGEN SATURATION OF 84% ON RA. THE PATIENT STATED THAT SHE HAS BEEN TOLD BY OTHER DOCTORS THAT SHE NEEDS OXYGEN AT HOME BUT REFUSES. THE PATIENT WAS PLACED ON 2 LPM PER NC. OXYGEN SATURATIONS CAME UP TO 91-92%. AN ORDER FOR OXYGEN WAS ALREADY ON THE CHART. RT NOTIFIED AND UPDATED ON THE INTERVENTIONS PROVIDED.
[2023-12-16 06:16] LABS: BASO % 0.2 % (0.0-2.0); EOS # 0.1 K/mm3 (0.0-0.7); EOS % 1.5 % (0.0-4.0); GRAN # 3.4 K/mm3 (1.4-6.5); GRAN % 70.1 % (42.2-75.2); LYMPH # 0.9 K/mm3 (1.2-3.4); LYMPH % 18.8 % (20.0-51.0); MEAN CELL VOLUME 95 fl (80.0-100.0); MEAN CORPUSCULAR HGB CONC 33 g/dl (33.0-37.0); MEAN PLATELET VOLUME 11.8 fl (7.4-10.4); MONO # 0.4 K/mm3 (0.1-0.6); MONO % 9.2 % (1.7-9.3); PLATELET COUNT 180 K/mm3 (130-400); RED BLOOD COUNT 3.87 M/mm3 (4.10-5.30); REDCELL DISTRIBUTION WIDTH-CV 12.9 % (11.5-14.5)
[2023-12-16 06:24] LABS: HEMATOCRIT 36.9 % (37.0-47.0); HEMOGLOBIN 12.1 g/dl (12.5-16.0); MEAN CORPUSCULAR HEMOGLOBIN 31 pg (27-31)
[2023-12-16 06:38] LABS: CALCIUM 8.4 mg/dL (8.4-10.2); CREATININE, serum 0.63 mg/dL (0.57-1.11); POTASSIUM 3.9 mmol/L (3.5-4.5)
--- NOTE | 2023-12-16 06:45 | NUR ---
awake resting in bed, bedside shift report received from PAULA Ortega
--- NOTE | 2023-12-16 07:11 | NUR ---
RECEIVED REPORT FROM PRIMARY NURSE ALIDA RN AT BEDSIDE. PATIENT ALERT AND ORIENTED. COMFORTABLE IN BED. INTRODUCED MYSELF STUDENT NURSE AND WILL ATTEND TO HER ALONG WITH ALIDA FOR THIS SHIFT.
--- NOTE | 2023-12-16 08:30 | NUR ---
resting in bed with eyes closed, arouses easily and full assessment completed, see intervention for further info, has dressing to righ calf that is CD&I, patient states she has a wound that is being treated at wound care clinic, dressing left intact, O2 on at 1L/NC, states does not wear O2 at home will monitor lung sounds coarse throughout with some expiratory wheezeing also heard at times
--- NOTE | 2023-12-16 08:50 | NUR ---
physical therapy in to work with patient, ambulated out in lauren and then back to room and back to bed
--- NOTE | 2023-12-16 09:39 | NUR ---
AT 0715, STUDENT NURSE WENT INTO PATIENT'S ROOM FOR ASSESSMENT. WHEEZING HEARD BILATERALLY IN LUNGS. S1 AND S2 SOUDS HEARD. BRACHIAL, RADIAL, APICAL PULSES EQUAL AND BILATERAL. PERRLA. RESIDENT VOICES NO PAIN AT THIS TIME. MUCOUS MEMBRANES PINK AND MOIST. PATIENT IS ALERT AND ORIENTED. EQUAL STRENGTH BILATERALLY NOTED FOR ALL EXTREMITIES.
--- NOTE | 2023-12-16 09:41 | NUR ---
STUDENT NURSE ASKS PATIENT IF SHE WOULD LIKE HER NICODERM PATCH THAT WAS SCHEDULED AT 0900. PATIENT REFUSES NICODERM PATCH.
--- NOTE | 2023-12-16 10:29 | NUR ---
SURI Martinez identified self as SURI Student and completed intake with patient at bedside. Patient lives in [place], [place] alone. Patient stated that a good point of contact for her would be Atilio Alberto (ph#[phone]). Patient stated that she is independent with ADLs and IADLs. Patient stated that she will usually transport herself independently. Patient stated that she has 2 FWW, rollator, and a cane that she uses when needed. Patient sees Dr. Lorri Barrera for primary care and prefers to obtain medications from [facility]. Patient denied any issues with affording medications. Patient stated that she does have a DPOA-HC and it is appointed to her daughter Sumi Martini who lives in [place], patient did not provided contact number. SURI Martinez went over PT recommendation of returning home when medically cleared. Patient was in agreeance with this plan. Discharge Plan: Home
--- NOTE | 2023-12-16 11:01 | NUR ---
Dr Dobbs and care team in to see patient, Dr Dobbs spoke with Dr Lugo and advanced her diet, NEON SIGN MECHANIC in assisting her with ordering breakfast, had shower earlier and tolerated well, polysomnographic tech verified transmission after shower
--- NOTE | 2023-12-16 12:13 | NUR ---
had breakfast now and tolerated well, denies pain or needs
--- NOTE | 2023-12-16 12:25 | NUR ---
Dr Lugo was in and saw patient and informed her she could go home, she is ready to go now and has called her ride, informed her it may be about 30 minutes before orders in computer and paperwork completed, IV fluids stopped, OFFICE NURSE PRACTITIONER in and will help her get dressed
--- NOTE | 2023-12-16 13:10 | NUR ---
discharge instructions given to patient, verbalizes understanding, INT discontinued
--- NOTE | 2023-12-16 13:15 | NUR ---
discharged per WC
== END 2023-12-16 13:15 | disposition home or self-care (01) ==
LOC: COL.ER 11:13 → SURG 16:24 → COL.ER 16:24 → SURG 16:25
PROVIDERS: Emergency Medicine; Nurse Practitioner Family; ADMIT Hospitalist
DX: K56.609 Unspecified intestinal obstruction, unspecified as to partial versus complete obstruction (principal); R09.02 Hypoxemia; J44.9 Chronic obstructive pulmonary disease, unspecified; F17.210 Nicotine dependence, cigarettes, uncomplicated; Z90.49 Acquired absence of other specified parts of digestive tract; Z86.010 Personal history of colon polyps; Z85.038 Personal history of other malignant neoplasm of large intestine
CPT/HCPCS: G0378; J7040; Q9967